=== PATIENT | male | born 1985 | race Caucasian/White ===

== ENCOUNTER 2018-08-10 12:26 | Outpatient (CLI) | payer OTHER ==
--- NOTE | 2018-08-10 15:54 | NM ---
HEPATOBILIARY SCAN: HISTORY:Right upper quadrant pain RADIOPHARMACEUTICAL: 5.4 mCi Technetium 99m Mebrofenin injected intravenously FINDINGS: There is normal tracer extraction by the liver with normal excretion into the biliary tracts and smal l bowel loops and normal filling of the gallbladder. The calculated gallbladder ejection fraction following an oral fatty meal measures 50%. IMPRESSION:Normal exam.
== END 2018-08-10 12:27 | disposition home or self-care (01) ==
LOC: NM 12:26
PROVIDERS: ATTEND Physician Assistant Medical
DX: R10.11 Right upper quadrant pain (principal)
CPT/HCPCS: 78227; A9537

== ENCOUNTER 2024-02-13 15:07 | Outpatient (CLI) | payer BC | END 2024-02-13 15:08 | disposition home or self-care (01) | LOC: SCSRAD 15:07 | PROVIDERS: ATTEND Family Medicine | DX: R07.89 Other chest pain (principal); R00.2 Palpitations | CPT/HCPCS: 71046 ==